=== PATIENT | male | born 1950 ===

== ENCOUNTER 2021-09-27 11:45 | Inpatient (IN) | payer OTHER ==
[~2021-09-27] VITALS: Ht 175.3 cm; Wt 72.6 kg
== END 2021-10-02 14:15 | disposition home or self-care (01) | DRG 358 ==
LOC: O/R 10-01 08:52 → SURH 10-01 11:45
PROVIDERS: ADMIT Colon & Rectal Surgery; ATTEND Colon & Rectal Surgery
PROC: 0DJW4ZZ Inspection of Peritoneum, Percutaneous Endoscopic Approach (ICD-10-PCS; principal; 2021-10-01 12:30)
DX: K62.3 Rectal prolapse (principal); R60.0 Localized edema

== ENCOUNTER 2022-01-23 12:30 | Inpatient (IN) | payer OTHER ==
[~2022-01-23] VITALS: Ht 167.6 cm; Wt 71.7 kg
[2022-01-25] MEDS ORDERED: UROXATRAL10 MG (08:12)
[2022-01-25] MEDS ORDERED: VITAMIN D350 MC3 (08:12)
[2022-01-25] MEDS ORDERED: ATORVASTATIN CA20 MG (08:13)
[2022-01-25] MEDS ORDERED: GABAPENTIN300 M2 (08:13)
== END 2022-01-26 14:30 | disposition home or self-care (01) | DRG 337 ==
LOC: O/R 01-25 06:22 → SURH 01-25 07:00
PROVIDERS: ADMIT Colon & Rectal Surgery; ATTEND Colon & Rectal Surgery
PROC: 0DNN4ZZ Release Sigmoid Colon, Percutaneous Endoscopic Approach (ICD-10-PCS; principal; 2022-01-25 07:00)
DX: K56.51 Intestinal adhesions [bands], with partial obstruction (principal); Z20.822 Contact with and (suspected) exposure to COVID-19; K62.3 Rectal prolapse; K59.02 Outlet dysfunction constipation

== ENCOUNTER 2025-07-13 08:00 | Day surgery (SDC) | payer OTHER ==
[~2025-07-13 08:00] MED LIST: ATORVASTATIN CA20 MG; GABAPENTIN300 M2; UROXATRAL10 MG; VITAMIN D350 MC3
[2025-07-13] MEDS ORDERED: MIDAZOLAM HCL 2 MG/2 ML VIAL IV ONE (12:15)
[2025-07-13] MEDS ORDERED: ONDANSETRON HCL 2 MG/ML VIAL IV ONE (12:15)
[2025-07-13] MEDS ORDERED: DIPHENHYDRAMINE HCL 50 MG/ML VIAL 1ML IV ONE (12:15)
[2025-07-13] MEDS ORDERED: fentaNYL CITRATE 50 MCG/ML AMPUL IV PUSH ONE (12:15)
== END 2025-07-13 13:10 | disposition home or self-care (01) ==
LOC: AMB-ENDOS 08:00
PROVIDERS: ATTEND Colon & Rectal Surgery
DX: D12.3 Benign neoplasm of transverse colon (principal); K63.5 Polyp of colon; K59.00 Constipation, unspecified; K57.30 Diverticulosis of large intestine without perforation or abscess without bleeding; K63.89 Other specified diseases of intestine